=== PATIENT | female | born 1930 | race Caucasian/White ===

== ENCOUNTER → 2016-08-05 | Outpatient (CLI) | payer OTHER, MEDICARE, BC | END | disposition disaster alternative care site (69) | LOC: GRAD 14:30 | DX: R51 Headache (principal); I67.89 Other cerebrovascular disease; G31.9 Degenerative disease of nervous system, unspecified; J34.89 Other specified disorders of nose and nasal sinuses; R11.0 Nausea ==

== ENCOUNTER 2016-11-30 17:06 | Emergency (ER) | payer MEDICARE, OTHER ==
--- NOTE | ~2016-11-30 | ER ---
PATIENT'S NAME: RONAN [facility] AGE: 86 Y [address] ROOM: [place] [address] LOCATION: [facility] ADMIT DATE: 11/30/2016 ER/Outpatient Report DISCHARGE DATE: 11/30/2016 FAMILY PHYSICIAN: Nidhi Earl MD ATTENDING PHYSICIAN: Daniel Duenas Time of Admission: 1706 hours. HISTORY OF PRESENT ILLNESS: The patient was initially seen by Dr. Duenas. She was checked out to me as a fall with multiple scrapes and bruises and a small facial laceration. The CT and plain films were pending. CT of the head and facial bones and C-spine were negative for acute fracture. She did have significant degenerative arthritis. The right shoulder revealed moderate subluxation of the shoulder joint; however, she had full range of motion and on physical exam, she was quite symmetrical with her left shoulder. She had radiographs of her right elbow, revealed anterior fat pad sign, but no evidence of a fracture. The left knee revealed no fracture on the plane films. Repeat examination, she had severe pain in her knee with palpation of the patella. She had a large tense hemarthrosis. CT scan was obtained and revealed a nondisplaced patella fracture. ASSESSMENT: Fall with multiple contusions and abrasions and nondisplaced patella fracture. PLAN: Follow up with the orthopedist in 3-5 days. Knee immobilizer, Percocet as needed for pain. BALJIT QUEZADA MD JDB/ernestinel /[id number] d: 12/01/16 1002 t: 12/04/16 0550, OUTPATIENT REPORT
--- NOTE | ~2016-11-30 | ER ---
PATIENT'S NAME: RONAN ALEX [facility] AGE: 86 Y [address] ROOM: [place] [address] LOCATION: [facility] ADMIT DATE: 11/30/2016 ER/Outpatient Report DISCHARGE DATE: 11/30/2016 FAMILY PHYSICIAN: Nidhi Earl MD ATTENDING PHYSICIAN: Marshal Duenas CORRECTED COPY -- DICTATING AND SIGNING PHYSICIAN / 12-01-2016 / KIARRA Time of Arrival: 1706 hours. Time of Evaluation: 1710 hours. CHIEF COMPLAINT: Ground level fall. HISTORY OF PRESENT ILLNESS: This is an 86-year-old lady brought in by private car after a ground level fall. She reports that she was at [facility] when she went outside, tripped over the curb and fell on to her left knee as well as her right shoulder. She is currently complaining of cervical neck pain, pain to her lip, right shoulder and elbow pain, and left knee pain. She reports that she did not lose consciousness during this fall. She reports that she is not on blood thinners of any kind. She was able to walk immediately after the fall but did require assistance. Currently, denies lightheadedness, dizziness, vision changes, chest pain, shortness of breath, or neurologic deficits. PAST MEDICAL HISTORY: Significant for asthma, hypertension, hypothyroidism, hiatal hernia status post surgical fixation, cholecystectomy. PAST SURGICAL HISTORY: Surgeries include cholecystectomy, partial hysterectomy, right knee surgery, and an appendectomy. SOCIAL HISTORY: The patient lives at home with her and granddaughter who has special needs. She does not smoke, drink, or use illicit drugs. MEDICATIONS: Include; 1. Metoprolol 25 mg daily. 2. Valsartan/hydrochlorothiazide combination, what appears to be 320/25 mg daily. 3. Spironolactone 25 mg, takes a half tab daily. 4. Sertraline 25 mg daily. 5. Omeprazole 1 tab per day. 6. Levothyroxine 25 mg daily. 7. Tylenol as needed for pain. PATIENT'S NAME: RONAN ALEX [facility] AGE: 86 Y [address] ROOM: [place] [address] LOCATION: [facility] ADMIT DATE: 11/30/2016 ER/Outpatient Report DISCHARGE DATE: 11/30/2016 FAMILY PHYSICIAN: Nidhi Earl MD ATTENDING PHYSICIAN: Marshal Duenas 8. Symbicort 2 puffs twice a day. ALLERGIES: INCLUDE SHELLFISH, ASPIRIN, HYDROCODONE, SULFA, IODINE, AND SEAFOOD. REVIEW OF SYSTEMS: As per HPI. PHYSICAL EXAMINATION: VITAL SIGNS: Blood pressure is 165/82, pulse 82, respirations 20, temperature 97.4, 95% oxygen saturation on room air. GENERAL: An 86-year-old female appearing stated age, alert and oriented x3, no apparent distress. HEENT: Pupils equal, round, and reactive to light; is noted to have a relatively deep hemostatic laceration on the right upper lip. No tenderness to palpation of her jaw, both upper and lower. CARDIOVASCULAR: Regular rate and rhythm. LUNGS: Clear to auscultation. Positive bowel sounds. MUSCULOSKELETAL: Does have mild cervical spine tenderness to palpation. Range of motion is normal. Tenderness to palpation of the right shoulder with range of motion. Does have a skin tear which is currently hemostatic to the right elbow, is also tender to palpation. Finally, her left knee is tender to palpation, did have a limping gait with this. IMPRESSION: Ground level fall. EMERGENCY DEPARTMENT COURSE: Currently ordering CT of the head, facial bones, and C spine as well as right shoulder, right elbow, and left knee for pain. We will await reads of these. We will handover care to Dr. Pineda for further management. JERAD PATEL MD FOR MARSHAL DUENAS DO CW/modl /[id number] CORRECTED COPY -- DICTATING AND SIGNING PHYSICIAN / 12-01-2016 / KIARRA ATTENDING ADDENDUM: I saw and evaluated the patient. I have discussed with the resident, agree with the resident's findings and plan and agree with the documented note above. Dr. Pineda will follow up on imaging and disposition based on those results. MARSHAL DUENAS DO d: 11/30/16 2157 t: 12/01/16 1501, OUTPATIENT REPORT
== END 2016-11-30 20:07 | disposition disaster alternative care site (69) ==
LOC: GACC 17:06
PROC: 2W3RX1Z Immobilization of Left Lower Leg using Splint (ICD-10-PCS; principal; 2016-11-30)
DX: S82.002A Unspecified fracture of left patella, initial encounter for closed fracture (principal); I10 Essential (primary) hypertension; S51.011A Laceration without foreign body of right elbow, initial encounter; S00.83XA Contusion of other part of head, initial encounter; S40.011A Contusion of right shoulder, initial encounter; J45.901 Unspecified asthma with (acute) exacerbation; E03.9 Hypothyroidism, unspecified; Z90.49 Acquired absence of other specified parts of digestive tract; Z79.1 Long term (current) use of non-steroidal anti-inflammatories (NSAID); Z79.899 Other long term (current) drug therapy; Z91.013 Allergy to seafood; Z88.6 Allergy status to analgesic agent; Z88.5 Allergy status to narcotic agent; Z88.2 Allergy status to sulfonamides; Z98.890 Other specified postprocedural states; W01.0XXA Fall on same level from slipping, tripping and stumbling without subsequent striking against object, initial encounter

== ENCOUNTER → 2016-11-30 | Emergency (ER) | payer OTHER | END | disposition disaster alternative care site (69) | LOC: GAMB 16:33 | DX: S50.311A Abrasion of right elbow, initial encounter (principal); S80.212A Abrasion, left knee, initial encounter; S01.551A Open bite of lip, initial encounter; W19.XXXA Unspecified fall, initial encounter ==